=== PATIENT | male | born 2000 | race Caucasian/White ===

== ENCOUNTER 2019-11-25 16:01 | Emergency (ER) | payer OTHER ==
[~2019-11-25] VITALS: Ht 170.2 cm; Wt 54.4 kg
[2019-11-25 17:47] VITALS: BP 117/72
== END 2019-11-25 17:48 | disposition still patient (30) ==
LOC: M.ERS 16:01
DX: S91.011A Laceration without foreign body, right ankle, initial encounter (principal); W26.8XXA Contact with other sharp object(s), not elsewhere classified, initial encounter; Y93.89 Activity, other specified; Y92.89 Other specified places as the place of occurrence of the external cause; Y99.0 Civilian activity done for income or pay